=== PATIENT | female | born 1990 | race Caucasian/White ===

== ENCOUNTER 2017-12-07 17:25 | Emergency (ER) | payer OTHER, MEDICAID, SELFPAY ==
[2017-12-07 17:28] VITALS: BP 145/92; PULSE 85; RESP 20; TEMP 36.1; O2SAT 98; BMI 16.4
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
[2017-12-07] MEDS: ACETAMINOPHEN 325 MG TABLET 650 MG PO (18:37)
[2017-12-07 19:37] VITALS: BP 130/72; PULSE 72; RESP 14; O2SAT 99
== END 2017-12-07 19:38 | disposition home or self-care (01) ==
PROVIDERS: Emergency Provider Nurse Practitioner Family; Family Provider Family Medicine; PCP Family Medicine
DX: M54.5 Low back pain (principal); V49.9XXA Car occupant (driver) (passenger) injured in unspecified traffic accident, initial encounter
CPT/HCPCS: 72131; 81025; 99283; 99284